=== PATIENT | male | born 1935 | race Caucasian/White ===

== ENCOUNTER 2016-12-10 19:28 | Emergency (ER) | payer MEDICARE ==
[2016-12-10 19:43] VITALS: BP 164/91
[2016-12-10] MEDS ORDERED: Polymyx/Trimethoprim OPTH* 10 ML BTL RIGHT EYE ONE (20:57)
--- NOTE | 2016-12-10 20:59 | ED ---
Throat Pain/Nasal Congestion - HPI Summary HPI Summary: 81M presents with right eye injury s/p getting hit in the eye with a branch while trimming the hedges. He denies any pain or change in vision. He states that there was a lot of growth to the hedge so one of them swatted him in the eye. He does not wear contacts but he wears glasses. He states his eye has been watering. He states he looked in the mirror and noticed that he had redness of his eye. He states he used a cotton swap and tried to rub it and nothing was removed. He is not on any blood thinners but he does take a daily aspirin. - History of Current Complaint Chief Complaint: EDEyeProblem Time Seen by Provider: 12/10/16 19:46 - Allergies/Home Medications Allergies/Adverse Reactions: Allergies Allergy/AdvReac Type Severity Reaction Status Date / Time CRAB Allergy Swelling Uncoded 12/10/16 19:40 Of Face,Lips,& Throat PMH/Surg Hx/FS Hx/Imm Hx Endocrine/Hematology History: Denies: Hx Anticoagulant Therapy, Hx Diabetes Cardiovascular History: Reports: Hx Hypertension Infectious Disease History: Denies: Traveled Outside the [place] in Last 30 Days - Family History Known Family History: Positive: Cardiac Disease - Social History Alcohol Use: Daily Substance Use Type: Reports: None Smoking Status (MU): Former Smoker Review of Systems Negative: Fever Positive: Drainage - watery, Other - blood in eye. Negative: Blurred Vision, Diplopia Negative: Chest Pain Negative: Shortness Of Breath All Other Systems Reviewed And Are Negative: Yes Physical Exam Triage Information Reviewed: Yes Vital Signs On Initial Exam: Initial Vitals Temp Pulse Resp BP Pulse Ox 99.1 F 64 16 164/91 96 12/10/16 19:40 12/10/16 19:40 12/10/16 19:40 12/10/16 19:40 12/10/16 19:40 Vital Signs Reviewed: Yes Appearance: Positive: Well-Appearing Skin: Positive: Warm, Dry Head/Face: Positive: Normal Head/Face Inspection Eyes: Positive: EOMI, REX, Other: - subconjunctivital hemmorrhage ENT: Positive: Normal ENT inspection, Pharynx normal, TMs normal Respiratory/Lung Sounds: Positive: Clear to Auscultation, Breath Sounds Present Cardiovascular: Positive: Normal, RRR Procedures - Eye Procedure Alcaine Drops Administered: Yes - fluorscein shows 1/2mm at 12 position Diagnostics - Vital Signs Vital Signs Temp Pulse Resp BP Pulse Ox 12/10/16 20:06 99 F 64 16 164/91 96 12/10/16 19:40 99.1 F 64 16 164/91 96 - Laboratory Lab Statement: Any lab studies that have been ordered have been reviewed, and results considered in the medical decision making process. EENT Course/Dx - Course Course Of Treatment: 81M presents with right eye injury s/p getting hit in the eye with a branch while trimming the hedges. He denies any pain or change in vision. He states that there was a lot of growth to the hedge so one of them swatted him in the eye. He does not wear contacts but he wears glasses. He states his eye has been watering. He states he looked in the mirror and noticed that he had redness of his eye. on exam he has a subconjunctiva hemorrhage. fluroscein exam shows 1/4mm corneal abrasion at 12 position. will treat with polytrim. patient understands and agrees with plan - Differential Diagnoses Differential Diagnoses: Conjunctivitis, Corneal Abrasion, Other - subconjunctival hemorrhage - Diagnoses Provider Diagnoses: Corneal abrasion, Subconjunctival hemorrhage of right eye Discharge - Discharge Plan Condition: Good Disposition: HOME Patient Education Materials: Corneal Abrasion (ED), Subconjunctival Hemorrhage (ED) Referrals: Grzegorz Washburn MD [Primary Care Provider] - Additional Instructions: Place 1 drop in eye 4 times a day for 5 days Use artificial tears or saline to rinse eye for symptomatic relief The blood in the eye may take up to two weeks to resolve Take Tylenol for pain Follow up with ophthalmology if no improvement in 5 days Return to ED if develop any new or worsening symptoms
== END 2016-12-10 21:07 | disposition home or self-care (01) ==
LOC: ED 19:28
DX: S05.01XA Injury of conjunctiva and corneal abrasion without foreign body, right eye, initial encounter (principal); H11.31 Conjunctival hemorrhage, right eye; W22.8XXA Striking against or struck by other objects, initial encounter; Y93.H2 Activity, gardening and landscaping; Y92.9 Unspecified place or not applicable; I10 Essential (primary) hypertension; Z87.891 Personal history of nicotine dependence
CPT/HCPCS: 99281

== ENCOUNTER 2017-06-20 10:57 | Emergency (ER) | payer MEDICARE ==
--- OUTSIDE RECORDS SUMMARY | 2017-06-20 11:06 | XMS REPORT ---
:1935 External Reference #:[id number] Author Organization [facility] Address [address] [address] Phone [phone] Care Team Providers Name Role Phone Grzegorz Washburn MD Primary Care Physician Unavailable Payers Type Date Identification Numbers Payment Provider Subscriber Health Maintenance Effective: Policy Number: Medicare Blue Azucena Chavez [facility] [place] 07/24/2013 [id number] [facility] PayID: [id number] [address] [address] [place] [address] Medigap Part B Policy Number: [id number] [facility] Azucena Chavez PayID: [id number] [address] [place] [address] Medigap Part B Effective: 12/24/2001 Policy Number: [id number] Medicare Azucena Chavez Expires: 07/23/2013 PayID: [id number] [address] [place] [address] Medigap Part B Expires: Policy Number: [facility]/[employer] Azucena Chavez 07/23/2013 [id number] Healthcare PayID: [id number] [address] [place] [address] Medigap Part B Effective: Policy Number: [facility] Azucena [facility] 04/25/2016 [id number] Healthcare Expires: 05/25/2016 PayID: [id number] [address] [place] [address] Problems Date Description Provider Status Onset: 09/30/2007 Mixed hyperlipidemia Hero Mcneill M.D.FACP Onset: 04/24/2011 History of malignant neoplasm of Hero Mcneill prostate Juliette,FACP Onset: 04/24/2011 Benign essential hypertension Hero Mcneill M.D.FACP Onset: 09/01/2015 Impaired fasting glycaemia Hero Mcneill M.D.FACP Onset: 09/01/2015 Sinus bradycardia Hero Mcneill M.D., FACP Onset: 12/04/2015 Aortic stenosis, non-rheumatic Hero Mcneill M.D., FACP Note: mild, echo 2015 Onset: 09/16/2013 Systolic murmur Grzegorz Washburn M.D.,NEIL Inactive Inactive: 12/04/2015 Note: Aortic sclerosis on echo 2009 Family History Date Family Member(s) Problem(s) Comments Father due to Leukemia () - 1963 Mother Osteoporosis Mother due to Cancer, Breast () - at age 101 Mother Aortic Stenosis Mother Chronic Obstructive Pulmonary Disease (COPD) First Son acne First Son Mental Illness NOS abusive of father Siblings 1 No known CAD First Sister Alive And Well Social History Type Date Description Comments Marital Status Lives With Son Occupation Retired semi-retired, [employer] Cigarette Use Quit 22 Years Ago ETOH Use 05/21/2017 Consumes 2 glasses of wine per day Recreational Drug Use Denies Drug Use Smoking 1984 Patient is a former smoker Daily Caffeine Consumes on average 1 cup of hot tea per day Daily Caffeine Consumes on average 1 cup of regular coffee per day Exercise Type/Frequency Bikes 3 times a week Exercise Type/Frequency Swims 4 times a week General Hx Text 2 sons Allergies, Adverse Reactions, Alerts Date Description Reaction Status Severity Comments 04/24/2011 NKDA active 05/07/2012 Crab swells up active Medications Medication Date Status Form Strength Qnty SIG Indications Ordering Provider Propranolol 09/16/ Active Tablets 10mg 30tab 1 by mouth 784.0 Grzegorz HCL 2013 s every day as Alesha Washburn needed Juliette,NEIL Fluticasone 05/13/ Active Suspension 50mcg/Act 16uni Use One Grzegorz Propionate 2012 ts [place](S) In Alesha Washburn, Each Nostril Juliette,NEIL In The Morning Aspirin 02/20/ Active Tablets DR 81mg 50tab 1 po qd Grzegorz 2009 s Alesha Washburn M.D.,NEIL Simvastatin 03/29/ Active Tablets 10mg 90tab take one Grzegorz 2009 s tablet by Alesha Washburn, mouth at [facility] Vitamin C SR / Active Capsules ER 500mg 1 daily Unknown 0000 Calcium 500 +D / Active Tablets 500-400mg 180ta 1 po qd Unknown 0000 -Unit bs Vitamin B / Active Capsules 1 po qd Unknown Complex 0000 Fish Oil / Active Capsules 1000mg 1 po qd Unknown 0000 Potassium / Active Tablets 595mg 300ta 1 tablet Unknown Gluconate 0000 bs daily Vitamin B-12 / Active Tablets Sub 2500mcg 1 by mouth Unknown 0000 every day Tamiflu 06/17/ Hx Capsules 75mg 10cap 1 by mouth Grzegorz 2016 - s twice a day Alesha Washburn, 06/22/ x 5 days M.D.,[facility] 2017 Azithromycin 03/08/ Hx Tablets 250mg 6tabs 2 every day Grzegorz 2016 - for 1 day, Alesha Washburn, 03/13/ then 1 every M.D[facility] 2015 day Cheratussin ac 03/05/ Hx Syrup 100-10mg/ 236ml 10 J20.9 Grzegorz 2016 - 5ML milliliters Alesha Washburn, 05/21/ by mouth [facility] 2017 four times a day as needed Zithromax 06/23/ Hx Tablets 250mg 1tabs 2 tabs today 465.8 Taz Sheets 2014 - and one tab REMEDIOS Powell 07/17/ each day 2015 therafter. by mouth Azithromycin 05/06/ Hx Tablets 250mg 6tabs 2 tabs by 465.9 Keyla 2013 - mouth every Lucinda, 06/23/ day x1 day, N.P. 2014 1 tab by mouth every day x 4 days Cephalexin 02/21/ Hx Capsules 500mg 20cap 1 tab by 680.2 Taz 2013 - s mouth four Powell, [employer] C[employer] MANAGER 03/04/ times a day 2013 Nasonex 01/08/ Hx Suspension 50mcg/Act 1Mon 1 spray michael 473.8 Grzegorz 2012 - each side qd Alesha Washburn, 05/13/ M.D.,FACP 2012 Zyrtec Allergy 01/08/ Hx Capsules 10mg 30cap po qd as 473.8 Grzegorz 2012 - s needed Alesha Washburn, 09/16/ M.D.,FACP 2014 Augmentin 10/30/ Hx Tablets 875-125mg 20tab 1 po 2x per 461.8 Cris 2012 - jamison Reyez, 01/08/ M.D. 2012 Ventolin HFA 08/27/ Hx Aerosol 108(90Bas 1unit 2 puffs po 466.0 Keyla 2012 - e) mcg/ac s qid prn Lucinda, 02/20/ N.P. 2013 Augmentin 08/27/ Hx Tablets 875-125mg 20tab bid x 10 466.0 Keyla 2012 - quinton Jane, 10/30/ N.P. 2013 Tessalon 08/27/ Hx Capsules 100mg 100mg 100 mg po 466.0 Keyla Perles 2013 - tid prn Lucinda, 09/16/ N.P. 2014 Propranolol 08/07/ Hx Tablets 10mg 30tab 1 po qd prn 784.0 Grzegorz CHURCH 2012 Alesha Washburn, M.D.,FACP 2012 Lorazepam 09/09/ Hx Tablets 2mg 2tabs 1 tablet po Grzegorz 2011 - 1 hour Alesha Washburn, before M.D.,FACP 2011 procedure Lorazepam 09/04/ Hx Tablets 2mg 1tabs 1 tablet po Grzegorz 2011 - 1 hour DEtienne Washburn, M.D.,FACP 2011 procedure Medrol Dosepak 12/18/ Hx Tablets 4mg 1tabs as directed 719.41 Reggie 2009 Harriet Pachika , M.Alesha 2009 Luzma 12/18/ Hx Tablets 180mg 30tab once daily 719.41 Reggie 2009 Harriet billingsley Pachikara , M.DtEienne 2010 Ibuprofen 03/29/ Hx Tablets 600mg 60tab tid prn PO 719.46 Grzegorz 2008 Harriet Washburn, M.D.,FACP 2009 Levitra 10/26/ Hx Tablets 10mg 12tab qd prn Grzegorz 2008 Harriet Washburn, M.D.,FACP 2010 Zocor / Hx Tablets 10mg 90tab 1 po hs Grzegorz Harriet Washburn, M.D.,FACP 2008 Saw [place] / Hx 1 qd Unknown 0000 - 2008 Glucosamine-Ch / Hx Capsules [id number] 1 PO 2 X day Unknown ondroitin - 2016 Vitamin E / Hx Capsules 400Unit 1 by mouth Unknown Complex 0000 - once daily 2011 Zinc / Hx Capsules 660mg 1 daily Unknown - 2012 Natural / Hx 1 gtt OU q Unknown Opthalmic 0000 - hs 2016 Immunizations CPT Code Status Date Vaccine Reaction Lot # [id number] Given 03/05/2017 Influenza Virus Vaccine, Quadrivalent, Split, Preservative Free [id number] Given 06/04/2016 Influenza Virus Vaccine, Quadrivalent, Split Virus, Im Use 40493 Given 09/01/2015 Pneumococcal Conjugate [id number] Vaccine 13 Valent For Intramuscular Use 40527 Given 04/11/2015 Fluzone High Dose 49855 Given 02/21/2014 Influenza Virus Vaccine, [id number] Quadrivalent, Split, Preservative Free [id number] Given 02/26/2012 Fluzone Vaccine [id number] Given 08/23/2011 Zoster (Zostavax) [id number] 18644 Given 03/04/2011 Influenza Virus 3Yrs & Over 41497 Given 03/07/2010 Influenza Virus 3Yrs & [id number] Over 75315 Given 03/02/2010 Influenza Virus 3Yrs & Over 36575 Given 09/20/2003 Tdap - not really TDAP, Td Tetanus/Diptheria/Acellular from old chart Pertussis Vital Signs Date Vital Result Comment 05/21/2017 Height 72 inches 6'0" Weight 192.00 lb Heart Rate 61 /min BP Systolic Sitting 150 mmHg BP Diastolic Sitting 84 mmHg Body Temperature 97.4 F O2 % BldC Oximetry 97 % BMI (Body Mass Index) 26.0 kg/m2 09/02/2016 Height 72 inches 6'0" Weight 191.00 lb with shoes Heart Rate 60 /min BP Systolic Sitting 148 mmHg LA reg cuff BP Diastolic Sitting 86 mmHg LA reg cuff BMI (Body Mass Index) 25.9 kg/m2 Ejection Fraction 55% - 60% echo 11/15/15 06/17/2016 Weight 192.12 lb Heart Rate 71 /min BP Systolic Sitting 186 mmHg BP Diastolic Sitting 80 mmHg Body Temperature 100.9 F O2 % BldC Oximetry 97 % 03/05/2016 Height 72 inches 6'0" Weight 186.00 lb Heart Rate 57 /min BP Systolic 141 mmHg BP Diastolic 82 mmHg Body Temperature 98.0 F O2 % BldC Oximetry 96 % BMI (Body Mass Index) 25.2 kg/m2 01/10/2016 Height 72 inches 6'0" Weight 185.00 lb Heart Rate 80 /min BP Systolic Sitting 154 mmHg LA, reg BP Diastolic Sitting 84 mmHg LA, reg BMI (Body Mass Index) 25.1 kg/m2 Ejection Fraction 55%-60% echo 11/15/15 12/04/2015 Weight 187.00 lb Heart Rate 76 /min BP Systolic Sitting 146 mmHg BP Diastolic Sitting 72 mmHg O2 % BldC Oximetry 95 % 10/02/2015 Height 70.5 inches 5'10.50" Weight 186.75 lb with shoes Heart Rate 60 /min BP Systolic 156 mmHg LA lrg cuff BP Diastolic 82 mmHg LA lrg cuff BMI (Body Mass Index) 26.4 kg/m2 Ejection Fraction 55% - 60% echo 03/16/10 09/01/2015 Height 70.5 inches 5'10.50" Weight 185.00 lb Heart Rate 62 /min BP Systolic Sitting 112 mmHg BP Diastolic Sitting 72 mmHg Body Temperature 98.1 F O2 % BldC Oximetry 98 % BMI (Body Mass Index) 26.2 kg/m2 06/23/2014 Weight 191.00 lb Heart Rate 78 /min BP Systolic Sitting 120 mmHg BP Diastolic Sitting 70 mmHg Body Temperature 97.9 F O2 % BldC Oximetry 96 % 05/06/2014 Weight 196.00 lb Heart Rate 76 /min BP Systolic Sitting 155 mmHg BP Diastolic Sitting 83 mmHg Body Temperature 97.4 F O2 % BldC Oximetry 96 % 02/21/2014 Weight 193.00 lb Heart Rate 58 /min BP Systolic Sitting 164 mmHg BP Diastolic Sitting 91 mmHg Body Temperature 97.4 F O2 % BldC Oximetry 97 % 09/16/2013 Height 70.5 inches 5'10.50" Weight 193.00 lb Heart Rate 58 /min BP Systolic Sitting 140 mmHg BP Diastolic Sitting 90 mmHg Body Temperature 97.7 F BMI (Body Mass Index) 27.3 kg/m2 01/08/2013 Height 70.5 inches 5'10.50" Weight 194.75 lb Heart Rate 64 /min BP Systolic Sitting 140 mmHg BP Diastolic Sitting 80 mmHg Body Temperature 97.1 F BMI (Body Mass Index) 27.5 kg/m2 10/30/2012 Weight 192.00 lb Heart Rate 59 /min BP Systolic Sitting 148 mmHg BP Diastolic Sitting 87 mmHg Body Temperature 99.8 F O2 % BldC Oximetry 98 % 08/27/2012 Height 70.5 inches 5'10.50" Weight 187.00 lb Heart Rate 80 /min BP Systolic Sitting 146 mmHg BP Diastolic Sitting 90 mmHg Body Temperature 97.6 F O2 % BldC Oximetry 96 % BMI (Body Mass Index) 26.4 kg/m2 08/07/2012 Height 70.5 inches 5'10.50" Weight 184.75 lb Heart Rate 92 /min BP Systolic Sitting 124 mmHg BP Diastolic Sitting 68 mmHg BMI (Body Mass Index) 26.1 kg/m2 05/07/2012 Height 70.5 inches 5'10.50" Weight 186.00 lb Heart Rate 72 /min BP Systolic Sitting 120 mmHg BP Diastolic Sitting 80 mmHg BMI (Body Mass Index) 26.3 kg/m2 12/31/2011 Height 70.5 inches 5'10.50" Weight 66.00 lb BP Systolic 124 mmHg BP Diastolic 76 mmHg Body Temperature 97.5 F lt ear BMI (Body Mass Index) 9.3 kg/m2 10/03/2011 Height 70.5 inches 5'10.50" Weight 188.00 lb Heart Rate 60 /min BP Systolic Sitting 130 mmHg BP Diastolic Sitting 70 mmHg BMI (Body Mass Index) 26.6 kg/m2 08/23/2011 Height 70.5 inches 5'10.50" Weight 192.00 lb Heart Rate 68 /min BP Systolic Sitting 136 mmHg BP Diastolic Sitting 84 mmHg BMI (Body Mass Index) 27.2 kg/m2 07/18/2011 Height 70.5 inches 5'10.50" Weight 189.31 lb Heart Rate 56 /min BP Systolic Sitting 146 mmHg BP Diastolic Sitting 84 mmHg BMI (Body Mass Index) 26.8 kg/m2 04/24/2011 Height 70.5 inches 5'10.50" Weight 187.75 lb Heart Rate 60 /min BP Systolic Sitting 162 mmHg BP Diastolic Sitting 86 mmHg BMI (Body Mass Index) 26.6 kg/m2 02/18/2011 Weight 191.00 lb Heart Rate 76 /min BP Systolic Sitting 146 mmHg BP Diastolic Sitting 78 mmHg Body Temperature 96.9 F 02/08/2011 Height 70 inches 5'10" Weight 181.00 lb Heart Rate 64 /min BP Systolic Sitting 138 mmHg L BP Diastolic Sitting 74 mmHg L BMI (Body Mass Index) 26.0 kg/m2 02/20/2010 Weight 186.00 lb Heart Rate 64 /min BP Systolic Sitting 134 mmHg BP Diastolic Sitting 80 mmHg 12/18/2009 Weight 189.00 lb Heart Rate 68 /min BP Systolic Sitting 144 mmHg BP Diastolic Sitting 92 mmHg 03/29/2009 Weight 192.00 lb Heart Rate 76 /min BP Systolic Sitting 138 mmHg BP Diastolic Sitting 78 mmHg Body Temperature 96.6 F 10/26/2008 Weight 186.00 lb Heart Rate 62 /min BP Systolic Sitting 152 mmHg BP Diastolic Sitting 90 mmHg O2 % BldC Oximetry 100 % 09/30/2007 Height 71.5 inches 5'11.50" Weight 190.00 lb Heart Rate 60 /min BP Systolic Sitting 130 mmHg BP Diastolic Sitting 80 mmHg BMI (Body Mass Index) 26.1 kg/m2 Results Test Date Test Result H/L Range Note Lipid Profile (Trig/Chol/HDL) 12/17/2016 Triglycerides 68 mg/dL 1 Cholesterol 193 mg/dL 2 HDL Cholesterol 68.9 mg/dL 3 LDL Cholesterol 111 mg/dL 4 Laboratory test finding 12/17/2016 PSA Diagnostic 0.032 ng/mL 0-4.000 5 Basic Metabolic Panel 12/17/2016 Sodium 140 mmol/L 133-145 Potassium 4.5 mmol/L 3.5-5.0 Chloride 105 mmol/L 101-111 Co2 Carbon Dioxide 28 mmol/L 22-32 Anion Gap 7 mmol/L 2-11 Glucose 106 mg/dL High 70-100 Blood Urea Nitrogen 15 mg/dL 6-24 Creatinine 0.89 mg/dL 0.67-1.17 BUN/Creatinine Ratio 16.9 8-20 Calcium 9.2 mg/dL 8.6-10.3 Egfr Non- 81.8 >60 Egfr 105.2 >60 6 Rapid Influenza A & B 06/17/2016 Influenza A Molecular POSITIVE Negative 7 Molecular Influenza B Molecular NEGATIVE Negative Laboratory test finding 06/17/2016 Influenza A & B SEE RESULT BELOW 8 Request Comp Metabolic Panel 08/22/2015 Sodium 139 mmol/L 133-145 Potassium 4.2 mmol/L 3.5-5.0 Chloride 104 mmol/L 101-111 Co2 Carbon Dioxide 31 mmol/L 22-32 Anion Gap 4 mmol/L 2-11 Glucose 102 mg/dL High 70-100 Blood Urea Nitrogen 16 mg/dL 6-24 Creatinine 0.98 mg/dL 0.67-1.17 BUN/Creatinine Ratio 16.3 8-20 Calcium 9.1 mg/dL 8.6-10.3 Total Protein 6.6 g/dL 6.4-8.9 Albumin 4.5 g/dL 3.2-5.2 Globulin 2.1 g/dL 2-4 Albumin/Globulin Ratio 2.1 1-3 Total Bilirubin 0.80 mg/dL 0.2-1.0 Alkaline Phosphatase 47 U/L 34-104 Alt 19 U/L 7-52 Ast 19 U/L 13-39 Egfr Non- 73.4 >60 Egfr 94.4 >60 9 Lipid Profile (Trig/Chol/HDL) 08/22/2015 Triglycerides 58 mg/dL 10 Cholesterol 173 mg/dL 11 HDL Cholesterol 71.9 mg/dL 12 LDL Cholesterol 90 mg/dL 13 Laboratory test finding 09/08/2013 PSA Diagnostic < 0.008 ng/mL 0- 4.000 14, 15 Comp Metabolic Panel 09/08/2013 Sodium 139 mmol/L 133-145 14 Potassium 4.3 mmol/L 3.7-5.6 14 Chloride 105 mmol/L 101-111 14 Co2 Carbon Dioxide 29 mmol/L 22-32 14 Anion Gap 5 mmol/L 2-11 14 Glucose 96 mg/dL 70-100 14 Blood Urea Nitrogen 13 mg/dL 6-24 14 Creatinine 0.93 mg/dL 0.67-1.17 14 BUN/Creatinine Ratio 14.0 8-20 14 Calcium 9.0 mg/dL 8.6-10.3 14 Total Protein 6.7 g/dL 6.4-8.9 14 Albumin 4.6 g/dL 3.2-5.2 14 Globulin 2.1 g/dL 2-4 14 Albumin/Globulin Ratio 2.2 1-3 14 Total Bilirubin 1.00 mg/dL 0.2-1.0 14 Alkaline Phosphatase 47 U/L 34-104 14 Alt 19 U/L 7-52 14 Ast 20 U/L 13-39 14 Egfr Non- 78.4 >60 14 Egfr 100.8 >60 14, 16 Lipid Profile (Trig/Chol/HDL) 09/08/2013 Triglycerides 86 mg/dL 14, 17 Cholesterol 196 mg/dL 14, 18 HDL Cholesterol 68.8 mg/dL 14, 19 LDL Cholesterol 110 mg/dL 14, 20 Lipid Panel 05/01/2012 Triglycerides 48 mg/dL 40-200 Cholesterol 211 mg/dL High Less than 200 HDL Cholesterol 83 mg/dL High 40-60 21 Cholesterol/HDL Ratio 2.5 Average 1-4.44 LDL Cholesterol 118.4 mg/dL High Less Than 100 22 Laboratory test finding 05/01/2012 PSA Diagnostic 0.0 ng/mL 0-4.0 23 CMP Panel 05/01/2012 Sodium 140 mmol/L 133-145 Potassium 4.4 mmol/L 3.5-5.0 Chloride 104 mmol/L 101-111 Co2 Carbon Dioxide 27.0 mmol/L 22-32 Anion Gap 9.0 mmol/L 2-11 Glucose 104 mg/dL High 70-100 Blood Urea Nitrogen 14 mg/dL 6-24 Creatinine 1.00 mg/dL 0.50-1.40 BUN/Creatinine Ratio 14.0 8-20 Calcium 9.1 mg/dL 8.1-9.9 Total Protein 6.4 g/dL 6.2-8.1 Albumin 4.3 g/dL 3.2-5.2 Globulin 2.1 g/dL 2-4 Albumin/Globulin Ratio 2.0 1-3 Total Bilirubin 1.0 mg/dL 0.4-1.5 Alkaline Phosphatase 56 U/L 30-110 Alt 25 U/L 14-54 Ast 25 U/L 12-42 Egfr Non- 72.3 >60 Egfr 92.9 >60 24 Lipid Panel - JF 05/01/2012 Creatine Kinase 137 U/L 0-200 Laboratory test finding 08/30/2011 Hemoglobin A1c 5.7 % Less Than 6.0 25 Liver Function Panel 08/23/2011 Total Protein 6.8 GM/DL 6.2-8.1 Albumin 4.4 GM/DL 3.2-5.2 Globulin 2.4 GM/DL 2-4 Albumin/Globulin Ratio 1.8 1-3 Bilirubin Total 1.1 mg/dL 0.4-1.5 26 Bilirubin Direct 0.2 mg/dL 0.1-0.5 Indirect Bilirubin 0.9 mg/dL 0.3-1.0 27 Alkaline Phosphatase 54 U/L 39-117 Alt (SGPT) 22 U/L 17-63 Ast (Sgot) 23 U/L 12-42 Basic Metabolic Panel 08/23/2011 Sodium 136 mmol/L 135-145 Potassium 4.6 mmol/L 3.5-5.0 Chloride 105 mmol/L 101-111 Co2 (Carbon Dioxide) 26.0 mmol/L 22-32 Anion Gap 5.0 mmol/L 2-11 28 Glucose 124 mg/dL High 70-100 BUN 17 mg/dL 6-24 Creatinine 0.9 mg/dL 0.50-1.40 One Over Creatinine 1.11 BUN/Creatinine Ratio 18.9 8-20 Calcium 9.0 mg/dL 8.1-9.9 eGFR Non- 81.8 > 60 eGFR 105.2 > 60 29 Laboratory test finding 05/06/2011 PSA,Diagnostic 0.00 NG/ML 0-4 30 CBC Auto Diff 05/06/2011 White Blood Count 3.4 CUMM Low 4.8-10.8 Red Cell Count 4.46 CUMM Low 4.6-6.2 Hemoglobin 14.5 g/dL 14.0-18.0 Hematocrit 42 % 42-52 Mean Corpuscular Volume 95 um3 High 80-94 Mean Corpuscular Hemoglob 33 pg High 27-31 Mean Corpuscular HGB Cone 34 g/dL 32-36 Redcell Distribution WDTH 14 % 10.5-15 Platelet Count 157 CUMM 150-450 Mean Platelet Volume 9.2 um3 7.4-10.4 Gran % 54.4 % 38-83 Lymph % 35.1 % 25-47 Mononuclear % 7.8 % 1-9 Eosinophil % 2.4 % 0-6 Basophil % 0.3 % 0-2 Abs Lymphs 1.2 1.0-4.8 Abs Mononuclear 0.3 0-0.8 Absolute Neutrophil Count 1.8 1.5-7.7 Abs Eosinophils 0.1 0-0.6 Abs Basophils 0 0-0.2 Laboratory test finding 02/11/2011 CPK (Creatine Kinase) 132 U/L 0-200 Lipid Profile (Trig/Chol/HDL) 02/11/2011 Triglyceride 43 mg/dL 40-200 Cholesterol 206 mg/dL High Less Than 200 31 High Density Lipoprotein 76 mg/dL High 40-60 32 Cholesterol/HDL Ratio 2.71 AVERAGE 1-4.97 Low Density Lipoprotein 121 mg/dL High Less Than 100 33 Vitamin B12 And Folate Serum 02/11/2011 Vitamin B12 338 pg/mL 180-914 Folic Acid 12.8 NG/ML 2-16 Laboratory test finding 02/11/2011 Lyme Disease Serology Negative Negative 34 TSH 2.13 MIU/ML 0.34-5.60 Thyroxine Free 0.84 ng/dL 0.61-1.24 Lyme Disease AB Conf. 02/11/2011 Lyme Igg Western Blot Negative Negative West.Blot Lyme Igg Bands Detected p41 kDa () Lyme Igm Western Blot Negative Negative Lyme Igm Bands Detected No bands detecte <SEE NOTE> kDa () 35 Lyme Disease Interpretation . () 36 Comp Metabolic Panel 02/11/2011 Sodium 143 mmol/L 135-145 Potassium 4.9 mmol/L 3.5-5.0 Chloride 107 mmol/L 101-111 Co2 (Carbon Dioxide) 30.0 mmol/L 22-32 Anion Gap 6.0 mmol/L 2-11 37 Glucose 102 mg/dL High 70-100 BUN 11 mg/dL 6-24 Creatinine 1.0 mg/dL 0.50-1.40 One Over Creatinine 1.00 BUN/Creatinine Ratio 11.0 8-20 Calcium 9.0 mg/dL 8.1-9.9 Total Protein 6.1 GM/DL Low 6.2-8.1 Albumin 4.3 GM/DL 3.2-5.2 Globulin 1.8 GM/DL Low 2-4 Albumin/Globulin Ratio 2.4 1-3 Bilirubin Total 0.9 mg/dL 0.4-1.5 38 Alkaline Phosphatase 52 U/L 39-117 Alt (SGPT) 22 U/L 17-63 Ast (Sgot) 24 U/L 12-42 eGFR Non- 72.6 > 60 eGFR 93.4 > 60 39 CBC With Manual Diff 02/11/2011 White Blood Count 3.3 CUMM Low 4.8-10.8 Red Cell Count 4.40 CUMM Low 4.6-6.2 Hemoglobin 14.7 g/dL 14.0-18.0 Hematocrit 42 % 42-52 Mean Corpuscular Volume 95 um3 High 80-94 Mean Corpuscular Hemoglob 33 pg High 27-31 Mean Corpuscular HGB Cone 35 g/dL 32-36 Redcell Distribution WDTH 13 % 10.5-15 Platelet Count 132 CUMM Low 150-450 Mean Platelet Volume 9.5 um3 7.4-10.4 Polysegmented Neutrophil 49 % 38-83 Band Neutrophil 1 % 0-8 Lymphocyte 45 % 25-47 Monocyte 4 % 0-13 Eosinophil 1 % 0-6 Absolute Neutrophil Count 1.6 RBC Morphology NORMAL Laboratory test finding 02/22/2010 PSA,Diagnostic 0.00 NG/ML 0-4 40 Lipid Panel - JF 02/22/2010 CPK (Creatine Kinase) 108 U/L 0-200 Comp Metabolic Panel 02/22/2010 Sodium 139 mmol/L 135-145 Potassium 4.1 mmol/L 3.5-5.0 Chloride 107 mmol/L 101-111 Co2 (Carbon Dioxide) 27.0 mmol/L 22-32 Anion Gap 5.0 mmol/L 2-11 41 Glucose 102 mg/dL High 70-100 42 BUN 15 mg/dL 6-24 Creatinine 0.87 mg/dL 0.50-1.40 One Over Creatinine 1.10 BUN/Creatinine Ratio 17.2 8-20 Calcium 8.7 mg/dL 8.1-9.9 Total Protein 6.7 GM/DL 6.2-8.1 Albumin 4.0 GM/DL 3.2-5.2 Globulin 2.7 GM/DL 2-4 Albumin/Globulin Ratio 1.5 1-3 Bilirubin Total 1.1 mg/dL 0.4-1.5 43 Alkaline Phosphatase 50 U/L 39-117 Alt (SGPT) 20 U/L 17-63 Ast (Sgot) 22 U/L 12-42 eGFR Non- 90.9 > 60 eGFR 110.0 > 60 44 Lipid Profile (Trig/Chol/HDL) 02/22/2010 Triglyceride 49 mg/dL 40-200 Cholesterol 195 mg/dL Less Than 200 45 High Density Lipoprotein 75 mg/dL High 40-60 46 Low Density Lipoprotein 110 mg/dL High Less Than 100 47 Cholesterol/HDL Ratio 2.60 AVERAGE 1-4.97 Lipid Profile (Trig/Chol/HDL) 11/11/2008 Triglyceride 58 mg/dL 40-200 Cholesterol 210 mg/dL High Less Than 200 48 High Density Lipoprotein 89 mg/dL High 40-60 49 Cholesterol/HDL Ratio 2.36 AVERAGE 1-4.97 Low Density Lipoprotein 109 mg/dL High Less Than 100 50 Comp Metabolic Panel 11/11/2008 Sodium 138 mmol/L 135-145 Potassium 4.2 mmol/L 3.5-5.0 Chloride 105 mmol/L 101-111 Co2 (Carbon Dioxide) 27.0 mmol/L 22-32 Anion Gap 6.0 mmol/L 2-11 51 Glucose 94 mg/dL 70-100 52 BUN 15 mg/dL 6-24 Creatinine 1.00 mg/dL 0.50-1.40 One Over Creatinine 1.00 BUN/Creatinine Ratio 15.0 8-20 Calcium 9.2 mg/dL 8.1-9.9 53 Total Protein 7.0 GM/DL 6.2-8.1 Albumin 4.4 GM/DL 3.2-5.2 Globulin 2.6 GM/DL 2-4 Albumin/Globulin Ratio 1.7 1-3 Bilirubin Total 1.0 mg/dL 0.4-1.5 54 Alkaline Phosphatase 52 U/L 39-117 Alt (SGPT) 23 U/L 17-63 Ast (Sgot) 26 U/L 12-42 Lipid Panel - [facility] 11/11/2008 CPK (Creatine Kinase) 151 U/L 0-200 Laboratory test finding 10/13/2008 PSA,Diagnostic 0.00 NG/ML 0-4 55 Laboratory test finding 03/23/2008 PSA,Diagnostic 0.00 NG/ML 0-4 56 Type And Screen 12/29/2007 Patient Blood Type O POSITIVE Antibody Screen NEGATIVE Specimen Discard Date 01/11/08 57 CBC With Electronic Diff 12/29/2007 White Blood Count 4.2 CUMM Low 4.8- 10.8 Red Cell Count 4.37 CUMM Low 4.6-6.2 Hemoglobin 14.1 g/dL 14.0-18.0 Hematocrit 41 % Low 42-52 Mean Corpuscular Volume 93 um3 80-94 Mean Corpuscular Hemoglob 32 pg High 27-31 Mean Corpuscular HGB Cone 35 g/dL 32-36 Redcell Distribution WDTH 14 % 10.5-15 Platelet Count 160 CUMM 150-450 Mean Platelet Volume 8.2 um3 7.4-10.4 Gran % 63.2 % 38-83 Lymph % 27.0 % 20-45 Mononuclear % 7.1 % 1-9 Eosinophil % 2.5 % 0-6 Basophil % 0.2 % 0-2 Abs Lymphs 1.1 1.0-4.8 Abs Mononuclear 0.3 0-0.8 Absolute Neutrophil Count 2.6 1.5-7.7 Abs Eosinophils 0.1 0-0.6 Abs Basophils 0 0-0.2 Basic Metabolic Panel 12/29/2007 Sodium 140 mmol/L 135-145 Potassium 3.8 mmol/L 3.5-5.0 Chloride 108 mmol/L 101-111 Co2 (Carbon Dioxide) 27.0 mmol/L 22-32 Anion Gap 5.0 mmol/L 2-11 58 Glucose 133 mg/dL High 70-105 BUN 14 mg/dL 6-24 Creatinine 0.9 mg/dL 0.5-1.4 One Over Creatinine 1.11 BUN/Creatinine Ratio 15.6 8-20 Calcium 8.6 mg/dL 8.1-9.9 59 Surgical 11/26/2007 Surgical Pathology 60 Pathology <SEE NOTE> Laboratory test 10/30/2007 PSA,Diagnostic 4.09 NG/ML High 0-4 61 finding Lipid Profile 10/30/2007 Triglyceride 45 mg/dL 40-200 61 (Trig/Chol/HDL) Cholesterol 199 mg/dL Less Than 200 61, 62 High Density Lipoprotein 84 mg/dL High 40-60 61, 63 Cholesterol/HDL Ratio 2.37 AVERAGE 1-4.97 61 Low Density Lipoprotein 106 mg/dL High Less Than 100 61, 64 Comp Metabolic Panel 10/30/2007 Sodium 140 mmol/L 135-145 61 Potassium 3.5 mmol/L 3.5-5.0 61 Chloride 109 mmol/L 101-111 61 Co2 (Carbon Dioxide) 26.0 mmol/L 22-32 61 Anion Gap 5.0 mmol/L 2-11 61, 65 Glucose 105 mg/dL 70-105 61 BUN 13 mg/dL 6-24 61 Creatinine 1.1 mg/dL 0.5-1.4 61 One Over Creatinine 0.90 61 BUN/Creatinine Ratio 11.8 8-20 61 Calcium 8.4 mg/dL 8.1-9.9 61, 66 Total Protein 6.8 GM/DL 6.2-8.1 61 Albumin 4.4 GM/DL 3.2-5.2 61 Globulin 2.4 GM/DL 2-4 61 Albumin/Globulin Ratio 1.8 1-3 61 Bilirubin Total 1.3 mg/dL 0.4-1.5 61 Alkaline Phosphatase 50 U/L 39-117 61 Alt (SGPT) 26 U/L 17-63 61 Ast (Sgot) 29 U/L 12-42 61 Lipid Panel - [facility] 10/30/2007 CPK (Creatine Kinase) 226 U/L High 0-200 61 Surgical Pathology 10/30/2007 Surgical Pathology 67 <SEE NOTE> 1 Desirable <150 Borderline high 150-199 High 200-499 Very High >500 2 Desirable <200 Borderline high 200-239 High >239 3 Low <40 Desirable: 40-60 High: >60 4 Desirable: <100 mg/dL Near Optimal: 100-129 mg/dL Borderline High: 130-159 mg/dL High: 160-189 mg/dL Very High: >189 mg/dL 5 Serum levels of PSA measured using the Nabor Ruy DXI Hybritech immunoassay should not be interpreted as absolute evidence of the presence or absence of disease. The PSA value should be used in conjunction with other pertinent clinical diagnostic procedures. A PSA value in the range of 0.1 to 0.6 ng/ml is indeterminate if being used as an indicator of recurrent or residual disease. The values obtained with different assay methods or kits cannot be used interchangeably. 6 Because ethnic data is not always readily available, this report includes an eGFR for both -Americans and non- Americans. The National Kidney Disease Education Program (NKDEP) does not endorse the use of the MDRD equation for patients that are not between the ages of 18 and 70, are , have extremes of body size, muscle mass, or nutritional status, or are non- or non-. According to the National Kidney Foundation, irrespective of diagnosis, the stage of the disease is based on the level of kidney function: Stage Description GFR(mL/min/1.73 m(2)) 1 Kidney damage with normal or decreased GFR 90 2 Kidney damage with mild decrease in GFR 60-89 3 Moderate decrease in GFR 30-59 4 Severe decrease in GFR 15-29 5 Kidney failure <15 (or dialysis) 7 Buckle And Button Maker: [id number] RIVERNOJim FELDMAN 8 SEE RESULT BELOW Name: AZUCENA CHAVEZ : [address]: Lauren Washburn MD Acct: [id number] Unit: [id number] AGE: 81 Location: [facility] Re06/17/16 SEX: M Status: REG REF SPEC: [id number] POPPY: 06/17/16 [facility] DR: Grzegorz Washburn MD REQ: [id number] RECD: 06/17/16 STATUS: COMP _ SOURCE: NARA SPDESC: ORDERED: Demetrius A B Request COMMENTS: [id number] Procedure Result Reported Site Rapid Influenza A B Request Final 06/17/162010 ML Specimen received for Influenza A/B Molecular testing * ML - MAIN LAB ([facility]) . END OF REPORT * ML=Testing performed at Main Lab DEPARTMENT OF PATHOLOGY, [address] [place] [address] John Dexter M.D. Director [facility] # [id number] 9 Because ethnic data is not always readily available, this report includes an eGFR for both -Americans and non- Americans. The National Kidney Disease Education Program (NKDEP) does not endorse the use of the MDRD equation for patients that are not between the ages of 18 and 70, are , have extremes of body size, muscle mass, or nutritional status, or are non- or non-. According to the National Kidney Foundation, irrespective of diagnosis, the stage of the disease is based on the level of kidney function: Stage Description GFR(mL/min/1.73 m(2)) 1 Kidney damage with normal or decreased GFR 90 2 Kidney damage with mild decrease in GFR 60-89 3 Moderate decrease in GFR 30-59 4 Severe decrease in GFR 15-29 5 Kidney failure <15 (or dialysis) 10 Desirable <150 Borderline high 150-199 High 200-499 Very High >500 11 Desirable <200 Borderline high 200-239 High >239 12 Low <40 Desirable: 40-60 High: >60 13 Desirable: <100 mg/dL Near Optimal: 100-129 mg/dL Borderline High: 130-159 mg/dL High: 160-189 mg/dL Very High: >189 mg/dL 14 PT IS FASTING 15 Serum levels of PSA measured using the Diffon DXI Hybritech immunoassay should not be interpreted as absolute evidence of the presence or absence of disease. The PSA value should be used in conjunction with other pertinent clinical diagnostic procedures. A PSA value in the range of 0.1 to 0.6 ng/ml is indeterminate if being used as an indicator of recurrent or residual disease. The values obtained with different assay methods or kits cannot be used interchangeably. 16 Because ethnic data is not always readily available, this report includes an eGFR for both -Americans and non- Americans. The National Kidney Disease Education Program (NKDEP) does not endorse the use of the MDRD equation for patients that are not between the ages of 18 and 70, are , have extremes of body size, muscle mass, or nutritional status, or are non- or non-. According to the National Kidney Foundation, irrespective of diagnosis, the stage of the disease is based on the level of kidney function: Stage Description GFR(mL/min/1.73 m(2)) 1 Kidney damage with normal or decreased GFR 90 2 Kidney damage with mild decrease in GFR 60-89 3 Moderate decrease in GFR 30-59 4 Severe decrease in GFR 15-29 5 Kidney failure <15 (or dialysis) 17 Desirable <150 Borderline high 150-199 High 200-499 Very High >500 18 Desirable <200 Borderline high 200-239 High >239 19 Low <40 Desirable: 40-60 High: >60 20 Desirable <100 Near Optimal 100-129 Borderline high 130-159 High 160-189 Very High >189 21 HDL Interpretation: Undesirable: High Risk: Less than 40 MG/DL Desirable: Low Risk: Greater than 60 MG/DL 22 LDL Interpretation: Low Risk Optimal Level: LDL Less than 100 MG/DL Near or Above Optimal: LDL 100-129 MG/DL Borderline High Risk: LDL 130-159 MG/DL High Risk: LDL 160-189 MG/DL Very High Risk: LDL Greater than 189 MG/DL 23 Serum levels of PSA measured using the Nabor Laclede DXI Hybritech immunoassay should not be interpreted as absolute evidence of the presence or absence of disease. The PSA value should be used in conjunction with other pertinent clinical diagnostic procedures. A PSA value in the range of 0.1 to 0.6 ng/ml is indeterminate if being used as an indicator of recurrent or residual disease. The values obtained with different assay methods or kits cannot be used interchangeably. 24 Because ethnic data is not always readily available, this report includes an eGFR for both -Americans and non- Americans. The National Kidney Disease Education Program (NKDEP) does not endorse the use of the MDRD equation for patients that are not between the ages of 18 and 70, are , have extremes of body size, muscle mass, or nutritional status, or are non- or non-. According to the National Kidney Foundation, irrespective of diagnosis, the stage of the disease is based on the level of kidney function: Stage Description GFR(mL/min/1.73 m(2)) 1 Kidney damage with normal or decreased GFR 90 2 Kidney damage with mild decrease in GFR 60-89 3 Moderate decrease in GFR 30-59 4 Severe decrease in GFR 15-29 5 Kidney failure <15 (or dialysis) 25 THERAPEUTIC TARGET FOR THE TREATMENT OF DIABETES MELLITUS PATIENTS IS <7% HBA1C, AND IN SELECTIVE PATIENTS <6.0%. PLEASE REFER TO [place] [employer] DIABETIC CARE GUIDELINES FOR FURTHER INFORMATION. 26 A metabolite of Naproxen, O-desmethylnaproxen, has been shown to interfere with the [place] method for measuring total bilirubin. Samples from patients who have taken Naproxen have shown spurious elevation in total bilirubin levels. 27 Please note updated reference range, effective 12/14/09 28 Anion gap measurement may be of limited value in the presence of any alkalosis, especially in a combined acid base disorder. . 29 Because ethnic data is not always readily available, this report includes an eGFR for both -Americans and non- Americans. The National Kidney Disease Education Program (NKDEP) does not endorse the use of the MDRD equation for patients that are not between the ages of 18 and 70, are , have extremes of body size, muscle mass, or nutritional status, or are non- or non-. According to the National Kidney Foundation, irrespective of diagnosis, the stage of the disease is based on the level of kidney function: Stage Description GFR(mL/min/1.73 m(2)) 1 Kidney damage with normal or decreased GFR 90 2 Kidney damage with mild decrease in GFR 60-89 3 Moderate decrease in GFR 30-59 4 Severe decrease in GFR 15-29 5 Kidney failure <15 (or dialysis) 30 * SERUM LEVELS OF PSA MEASURED USING THE [employer] Systems ACCESS HYBRITECH IMMUNOASSAY SHOULD NOT BE INTERPRETED ABSOLUTE EVIDENCE OF THE PRESENCE OR ABSENCE OF DISEASE. THE PSA VALUE SHOULD BE USED IN CONJUNCTION WITH OTHER PERTINENT CLINICAL DIAGNOSTIC PROCEDURES. A PSA value in the range of 0.1 to 0.6 ng/ml is indeterminate if being used as an indicator of recurrent or residual disease. . 31 CHOLESTEROL INTERPRETATION: Desirable: Less than 200 MG/DL Borderline-High Risk: 200-239 MG/DL High-Risk: 240 MG/DL and over 32 HDL INTERPRETATION: Undesirable: High Risk: Less than 40 MG/DL Desirable: Low Risk: Greater than 60 MG/DL 33 LDL INTERPRETATION: Low Risk Optimal Level: LDL Less than 100 MG/DL Near or Above Optimal: LDL 100-129 MG/DL Borderline High Risk: LDL 130-159 MG/DL High Risk: LDL 160-189 MG/DL Very High Risk: LDL Greater than 189 MG/DL 34 Serologic response to B. burgdorferi infection is not detected, but cannot rule out early infection during which low or undetectable antibody levels to B. burgdorferi may be present. If clinically indicated, a new serum specimen should be submitted in 7-14 days. Test Performed by: [facility] Dpt of Lab Med and Pathology [address] [place] [id number] Fire Boss: uTshar Del Toro III, M.D. 35 No bands detected 36 Specific serologic response to B. burgdorferi infection is not detected, but cannot rule out early infection during which low or undetectable antibody levels to B. burgdorferi may be present. If clinically indicated, a new serum specimen should be submitted in 7-14 days. CDC criteria require >=5 bands for IgG or >=2 bands for IgM for the Western blot to be considered positive. Bands (e.g.,p41) may be detected in patients without Lyme disease, and patterns not meeting the CDC criteria should be interpreted with caution. Western blot should be ordered only on specimens that are positive or equivocal by a FDA-licensed Lyme disease antibody screening test (e.g., EIA). Test performed by immunoblot. Test Performed by: [facility] Dpt of Lab Med and Pathology [address] [place] [id number] Fire Boss: Tushar Del Toro III, M.D. 37 Anion gap measurement may be of limited value in the presence of any alkalosis, especially in a combined acid base disorder. . 38 A metabolite of Naproxen, O-desmethylnaproxen, has been shown to interfere with the [place] method for measuring total bilirubin. Samples from patients who have taken Naproxen have shown spurious elevation in total bilirubin levels. 39 Because ethnic data is not always readily available, this report includes an eGFR for both -Americans and non- Americans. The National Kidney Disease Education Program (NKDEP) does not endorse the use of the MDRD equation for patients that are not between the ages of 18 and 70, are , have extremes of body size, muscle mass, or nutritional status, or are non- or non-. According to the National Kidney Foundation, irrespective of diagnosis, the stage of the disease is based on the level of kidney function: Stage Description GFR(mL/min/1.73 m(2)) 1 Kidney damage with normal or decreased GFR 90 2 Kidney damage with mild decrease in GFR 60-89 3 Moderate decrease in GFR 30-59 4 Severe decrease in GFR 15-29 5 Kidney failure <15 (or dialysis) 40 * SERUM LEVELS OF PSA MEASURED USING THE NABOR No [employer] Vapor ACCESS HYBRITECH IMMUNOASSAY SHOULD NOT BE INTERPRETED ABSOLUTE EVIDENCE OF THE PRESENCE OR ABSENCE OF DISEASE. THE PSA VALUE SHOULD BE USED IN CONJUNCTION WITH OTHER PERTINENT CLINICAL DIAGNOSTIC PROCEDURES. A PSA value in the range of 0.1 to 0.6 ng/ml is indeterminate if being used as an indicator of recurrent or residual disease. . 41 Anion gap measurement may be of limited value in the presence of any alkalosis, especially in a combined acid base disorder. . 42 Note change in reference range as of 01/14/08. The change was based on recommendations from the [place] [employer]. 43 A metabolite of Naproxen, O-desmethylnaproxen, has been shown to interfere with the Jendrassik-[place] method for measuring total bilirubin. Samples from patients who have taken Naproxen have shown spurious elevation in total bilirubin levels. 44 Because ethnic data is not always readily available, this report includes an eGFR for both -Americans and non- Americans. The National Kidney Disease Education Program (NKDEP) does not endorse the use of the MDRD equation for patients that are not between the ages of 18 and 70, are , have extremes of body size, muscle mass, or nutritional status, or are non- or non-. According to the National Kidney Foundation, irrespective of diagnosis, the stage of the disease is based on the level of kidney function: Stage Description GFR(mL/min/1.73 m(2)) 1 Kidney damage with normal or decreased GFR 90 2 Kidney damage with mild decrease in GFR 60-89 3 Moderate decrease in GFR 30-59 4 Severe decrease in GFR 15-29 5 Kidney failure <15 (or dialysis) 45 CHOLESTEROL INTERPRETATION: Desirable: Less than 200 MG/DL Borderline-High Risk: 200-239 MG/DL High-Risk: 240 MG/DL and over 46 HDL INTERPRETATION: Undesirable: High Risk: Less than 40 MG/DL Desirable: Low Risk: Greater than 60 MG/DL 47 LDL INTERPRETATION: Low Risk Optimal Level: LDL Less than 100 MG/DL Near or Above Optimal: LDL 100-129 MG/DL Borderline High Risk: LDL 130-159 MG/DL High Risk: LDL 160-189 MG/DL Very High Risk: LDL Greater than 189 MG/DL 48 CHOLESTEROL INTERPRETATION: Desirable: Less than 200 MG/DL Borderline-High Risk: 200-239 MG/DL High-Risk: 240 MG/DL and over 49 HDL INTERPRETATION: Undesirable: High Risk: Less than 40 MG/DL Desirable: Low Risk: Greater than 60 MG/DL 50 LDL INTERPRETATION: Low Risk Optimal Level: LDL Less than 100 MG/DL Near or Above Optimal: LDL 100-129 MG/DL Borderline High Risk: LDL 130-159 MG/DL High Risk: LDL 160-189 MG/DL Very High Risk: LDL Greater than 189 MG/DL 51 Anion gap measurement may be of limited value in the presence of any alkalosis, especially in a combined acid base disorder. . 52 Note change in reference range as of 01/14/08. The change was based on recommendations from the [place] [employer]. 53 Please note change in reference range effective 07 . 54 A metabolite of Naproxen, O-desmethylnaproxen, has been shown to interfere with the [place] method for measuring total bilirubin. Samples from patients who have taken Naproxen have shown spurious elevation in total bilirubin levels. 55 CONSISTENT WITH PREVIOUS RESULTS * SERUM LEVELS OF PSA MEASURED USING THE [employer] Systems ACCESS HYBRITECH IMMUNOASSAY SHOULD NOT BE INTERPRETED ABSOLUTE EVIDENCE OF THE PRESENCE OR ABSENCE OF DISEASE. THE PSA VALUE SHOULD BE USED IN CONJUNCTION WITH OTHER PERTINENT CLINICAL DIAGNOSTIC PROCEDURES. A PSA value in the range of 0.1 to 0.6 ng/ml is indeterminate if being used as an indicator of recurrent or residual disease. . 56 * SERUM LEVELS OF PSA MEASURED USING THE NABOR No Paper Just Vapor ACCESS HYBRITECH IMMUNOASSAY SHOULD NOT BE INTERPRETED ABSOLUTE EVIDENCE OF THE PRESENCE OR ABSENCE OF DISEASE. THE PSA VALUE SHOULD BE USED IN CONJUNCTION WITH OTHER PERTINENT CLINICAL DIAGNOSTIC PROCEDURES. A PSA value in the range of 0.1 to 0.6 ng/ml is indeterminate if being used as an indicator of recurrent or residual disease. . 57 PREADMISSION TESTING SAMPLES FOR BLOOD BANK WILL BE HELD FOR 14 DAYS FROM THE DATE OF COLLECTION *IF* THE FOLLOWING CRITERIA ARE MET: 1) THE PATIENT HAS *NOT* BEEN IN THE LAST 3 MONTHS. 2) THE PATIENT HAS *NOT* BEEN TRANSFUSED IN THE LAST 3 MONTHS. PREADMISSION TESTING SAMPLES WILL *NOT* BE HELD FOR 14 DAYS FROM PATIENTS WHO IN THE LAST 3 MONTHS: 1) HAVE BEEN 2) HAVE BEEN TRANSFUSED THESE PATIENTS *MUST* BE COLLECTED WITHIN 3 DAYS OF THE SURGERY DATE. 58 Anion gap measurement may be of limited value in the presence of any alkalosis, especially in a combined acid base disorder. . 59 Please note change in reference range effective 07 . 60 ---- RUN DATE: 11/30/07 [facility] NMI LIVE PAGE 1 RUN TIME: 1459 Specimen Inquiry RUN USER: INTERFACE -- Name: AZUCEAN CHAVEZ Accmelisa#: [id number] Status: REG REF Re11/26/07 Age/Sex: 72/M Unit#: [id number] Location: [facility] : 34 -- Specimen: [id number] SOUT Spec Date: 11/26/[address]: Seferino marcelino MD Spec Type: SURGICAL P Received: 11/26/07-8362 Copies to: Grzegorz cornejo MD SPECIMEN 1) LEFT LOBE PROSTATE BIOPSY APEX (APEX 3) 2) LEFT LOBE PROSTATE BIOPSY BASE (BASE 3) 3) RIGHT LOBE PROSTATE BIOPSY APEX (APEX 4) 4) RIGHT LOBE PROSTATE BIOPSY BASE (BASE 3) HISTORY PRE-OP DIAGNOSIS: Moderate enlarged prostate right lobe hard nodular. POST-OP DIAGNOSIS: PSA 4.09 GROSS DESCRIPTION 1) The specimen is received in formalin labelled Azucena Chavez, Left Prostate Lobe [place], and consists of three, gu, soft tissue cores measuring 1.6 cm., 1.7 cm., and 1.3 x 0.1 cm. Submitted entirely, one cassette. 2) The specimen is received in formalin labelled Azucena Preciadoper, Left Prostate Lobe Base, and consists of three, gu, soft tissue cores measuring 1.6 cm., 1.8 cm., and 1.5 x 0.1 cm. Submitted entirely, one cassette. 3) The specimen is received in formalin labelled Azucena Preciadoper, Right Prostate Lobe [place], and consists of three, gu, soft tissue cores measuring 1.6 cm., 1.8 cm., and 1.5 x 0.1 cm. Submitted entirely, one cassette. 4) The specimen is received in formalin labelled Azucena Hopper, Right Prostate Lobe Base, and consists of three, gu, soft tissue cores measuring 1.8 cm., 1.0 cm., and 1.7 x 0.1 cm. Submitted entirely, one cassette. DIAGNOSIS 1) Prostate, left apex, core biopsies - A) Benign prostate tissue with partial atrophy and chronic inflammation. B) No evidence of malignancy identified. -- DEPARTMENT OF PATHOLOGY, [address] [place] [address] [facility] Permit #[id number] John Dexter M.D. Director of [facility] -- -- RUN DATE: 11/30/07 [facility] NMI LIVE PAGE 2 RUN TIME: 1459 Specimen Inquiry RUN USER: INTERFACE -- Name: AZUCENA CHAVEZ Accmelisa#: [id number] Status: REG REF Re11/26/07 Age/Sex: 72/M Unit#: [id number] Location: [facility] : 34 -- -- CONTINUED -- DIAGNOSIS (Continued) 2) Prostate, left base, core biopsies - A) Benign prostate tissue with partial atrophy and chronic inflammation. B) No evidence of malignancy identified. 3) Prostate, right apex, core biopsies - A. Prostatic adenocarcinoma, small acinar type: 1. Deepali score: 3 + 4=7. 2. Extent of Local Invasion: Tumor involves two of three cores, measures 0.8 cm. in maximal single span, and occupies 30% of total core volume. 3. Perineural Invasion: Not seen. 4. Angiolymphatic Invasion: Not seen. B. Other findings: None. 4) Prostate, right base, core biopsies - A. Prostatic adenocarcinoma, small acinar type: 1. Pound score: 3 + 4=7. 2. Extent of Local Invasion: Tumor involves two foci on two of three cores, measures 0.1 cm. in maximal aggregate dimension, and occupies less than 5% of total core length. 3. Perineural Invasion: Not seen. 4. Angiolymphatic Invasion: Not seen. B. Other findings: None. Signed Electronically by: JOHN DEXTER MD 11/30/07 1458 -- -- DEPARTMENT OF PATHOLOGY, [address] [place] [address] [facility] Permit #[id number] John Dexter M.D. Director of Laboratories -- 61 FASTING 62 CHOLESTEROL INTERPRETATION: Desirable: Less than 200 MG/DL Borderline-High Risk: 200-239 MG/DL High-Risk: 240 MG/DL and over 63 HDL INTERPRETATION: Undesirable: High Risk: Less than 40 MG/DL Desirable: Low Risk: Greater than 60 MG/DL 64 LDL INTERPRETATION: Low Risk Optimal Level: LDL Less than 100 MG/DL Near or Above Optimal: LDL 100-129 MG/DL Borderline High Risk: LDL 130-159 MG/DL High Risk: LDL 160-189 MG/DL Very High Risk: LDL Greater than 189 MG/DL 65 Anion gap measurement may be of limited value in the presence of any alkalosis, especially in a combined acid base disorder. . 66 Please note change in reference range effective 07 . 67 ---- RUN DATE: 11/02/07 [facility] NMI LIVE PAGE 1 RUN TIME: 1558 Specimen Inquiry RUN USER: INTERFACE -- Name: AZUCENA CHAVEZ Wayne#: [id number] Status: REG REF Re10/30/07 Age/Sex: 72/M Unit#: [id number] Location: [facility] : 34 -- Specimen: [id number] SOUT Spec Date: 10/30/[address]: Wilian king MD Spec Type: SURGICAL P Received: 10/30/07-0363 Copies to: Grzegorz cornejo MD SPECIMEN 1) BIOPSY CECAL POLYP 2) POLYP COLON AT 30 CM. HISTORY CLINICAL INFORMATION: Patient for follow-up for colon polyps GROSS DESCRIPTION 1) The specimen is received in formalin labelled Azucena Chavez, Biopsy Cecal Polyp, and consists of a polypoid, gu, soft tissue fragment measuring 0.4 x 0.3 x 0.2 cm. Submitted entirely, one cassette. 2) The specimen is received in formalin labelled Azucena Preciadoper, Colon Polyp at 30 cm., and consists of a polypoid, gu, soft tissue fragment measuring 0.6 x 0.3 x 0.2 cm. Submitted entirely, one cassette. DIAGNOSIS 1) Colon, cecum, biopsy - A) Tubular adenoma. B) No high grade dysplasia or malignancy. 2) Colon, 30 cm., biopsy - A) Tubular adenoma. B) No high grade dysplasia or malignancy. Signed Electronically by: JOHN DEXTER MD 11/02/07 1557 -- -- DEPARTMENT OF PATHOLOGY, [address] [place] [address] [facility] Permit #[id number] John Dexter M.D. Director of Laboratories -- Procedures Date CPT Code Description Status 09/02/2016 55091 EKG Tracing & Interpretation Completed 11/20/2015 88499 ECHO Stress Test Incl Perf Contiuous ekg Monitoring Completed W/Phys Superv 11/15/2015 12349 ECHO Transthoracic, Real-Time 2D With Doppler And Color Completed Flow 10/02/2015 34518 EKG Tracing & Interpretation Completed 09/11/2015 49008 Holter Monitor Review (24 hr)dr mccollum & casie Completed only 09/06/2015 59444 ECG Monitor/Recording W/Visual Superimposition Scanning Completed 09/01/2015 36856 EKG Tracing & Interpretation Completed 03/16/2010 62236 ECHO Transthoracic, Real-Time 2D With Doppler And Color Completed Flow 12/29/2007 04364 EKG, Interpretation Only Completed 12/29/2007 80095 EKG, Interpretation Only Completed 10/30/2007 Colonoscopy Completed Encounters Type Date Location Provider CPT E/M Dx Office Visit 09/02/2016 2:40p [facility] Faytaybalayna Harris, 28846 R00.1 Juliette I34.0 I36.1 E78.4 Office Visit 06/17/2016 2:20p [facility] Grzegorz Washburn, 13552 J12.9 - Jean-Pierre Mclain M.D.,FACP Office Visit 03/05/2016 4:00p [facility] Grzegorz Washburn, 51433 J20.9 - Gold Segovia,FACP Office Visit 01/10/2016 2:20p [facility] Faytaybalayna Degroot 06788 R00.1 Juliette Harris I34.0 I36.1 Office Visit 12/04/2015 10:30a [facility] Grzegorz Washburn, 45225 R00.2 - Jean-Pierre Mclain M.D.,FACP T74.11xD Office Visit 10/02/2015 2:00p [facility] Faytaybalayna SEtienne Harris, 15670 R00.2 Juliette R94.31 R00.1 Office Visit 09/01/2015 10:00a [facility] Internal Grzegorz Washburn, 57139 Z00.01 Medicine - Jean-Pierre Mclain M.D.,FACP R41.89 R00.2 T74.11xA Z23 Office Visit 06/23/2014 10:00a [facility] Internal Medicine - Taz Powell, BEHAVIORAL HEALTH CARE MANAGER 60760 465.8 [place] 465.9 Office Visit 05/06/2014 2:00p [facility] Keyla Jane, N.P. 43862 465.9 - [place] Office Visit 02/21/2014 1:30p [facility] Taz Powell, BEHAVIORAL HEALTH CARE MANAGER 54909 680.2 - [place] V04.81 Office Visit 01/08/2013 11:00a [facility] Grzegorz Washburn, 76788 473.8 - Gold Segovia,FACP Office Visit 10/30/2012 2:00p [facility] Cris Reyez M.D. 45450 461.8 - [place] Office Visit 08/27/2012 11:30a [facility] Keyla Jane, N.P. 59261 466.0 - [place] Office Visit 08/07/2012 11:00a [facility] Grzegorz Washburn, 26917 784.0 - Gold Segovia,FACP Office Visit 05/07/2012 11:00a [facility] Keyla Jane, N.P. 42016 V76.51 - [place] V70.0 401.1 272.2 389.9 369.9 Office Visit 12/31/2011 2:15p [facility] Keyla Jane, N.P. 87910 724.2 - [place] Office Visit 10/03/2011 3:00p [facility] Grzegorz Washburn, 09178 593.2 - Gold Segovia,[facility] 724.2 Office Visit 08/23/2011 11:00a [facility] Internal Medicine Keyla Jane, N.P. [address] 753.15 - [place] V04.89 Office Visit 07/31/2011 2:45p Orthopedic Services Feng Goff 19153 719.46 Of Linda DiggsPEtienneAEtienne-C 727.09 Office Visit 07/18/2011 11:00a Director Of Broadcast Internal Medicine [facility], [facility] 12[address] 719.46 [facility] 724.5 401.1 Office Visit 04/24/2011 1:00p DO Not Use Director Of Broadcast At Grzegorz Washburn, 07326 V70.0 Aftonkalyan Segovia,FACP 272.2 287.5 V10.46 401.1 Office Visit 02/18/2011 10:00a DO Not Use Director Of Broadcast At [facility] 75[address] 272.2 [place] 919.4 Office Visit 02/08/2011 4:15p DO Not Use Director Of Broadcast At [facility] [address]97 780.79 [facility] 272.2 236.5 919.4 Office Visit 02/20/2010 2:00p DO Not Use Director Of Broadcast At Grzegorz Washburn, 388[address] 185 Aftonklayan Segovia,FACP 272.2 785.2 441.4 Office Visit 12/18/2009 11:20a DO Not Use Director Of Broadcast At Reggie Mesa M.D. 87911 272.2 [facility] 708.0 719.41 Office Visit 03/29/2009 10:20a DO Not Use Director Of Broadcast At Grzegorz Washburn, 34228 719.46 Aftonkalyan Segovia,FACP Office Visit 10/26/2008 1:20p DO Not Use Director Of Broadcast At Grzegorz Washburn, 770[address] 185 Aftonkalyan Segovia,FACP 272.2 785.2 Office Visit 09/30/2007 2:00p DO Not Use Director Of Broadcast At Grzegorz Washburn, 76709 211.3 Luis Segovia,FACP 272.2 236.5 Plan of Care Future Appointment(s):07/11/2017 11:40 am - Bimal Harris M.D. at [facility]05/21/2017 - Grzegorz Washburn M.D.,FACPZ00.01 Encounter for general adult medical exam w abnormal findingsComments:Received flu shot this fall. Routine Health Maintenance up to date. Depression screen: on fileADL screen: negativeAdvance directives: HCP discussed, form to be obtained. Requests MOLST form. Cognitive impairment screen: negative Reviewed [facility] DM/HM form.E78.4 Other hyperlipidemiaComments:LDL at goal <130, for primary prevention of heart disease. Continue Statin medication.I34.9 Nonrheumatic mitral valve disorder, unspecifiedComments:Follow up with cardiology.R00.1 Bradycardia, unspecifiedComments:Follow up with cardiology.R97.21 Rising PSA fol treatment for malignant neoplasm of prostateNew Labs:PSA DiagnosticComments: Discussed PSA results and possibility of prostate cancer recurrence. Perform PSA to monitor prostate. Follow up with Dr. Solorio.R06.00 Dyspnea, unspecifiedNew Xrays:Chest PA & Lat 2 VWSComments:Discussed possible causes of shortness of breath
--- NOTE | 2017-06-20 13:34 | UC ---
Upper Extremity HPI - HPI Summary HPI Summary: 82 y/o male presents to the urgent care c/o Left wrist and elbow pain s/p falling down the 5 stairs last Friday06/16/2017. Pt reports elbow was swollen and the next day he woke up with a lot of bruising and the wrist too. Pain is mild 6/10 at touch. FROM of both joints. He applied ice, but he has not taking anything to alleviate symptoms. He wants to make sure he doesn't have a fracture. Pt denies numbness or tingling sensation over fingers or hand, fever, SOB, chest pain, abdominal pain, N/V/D. - History of Current Complaint Chief Complaint: UCUpperExtremity Stated Complaint: ARM INJURY Time Seen by Provider: 06/20/17 13:18 Hx Obtained From: Patient Onset/Duration: Sudden Onset, Lasting Days - 5 days, Still Present Severity Initially: Moderate Severity Currently: Moderate Pain Intensity: 6 Pain Scale Used: 0-10 Numeric Location Of Pain: Is Discrete @ - Left elbow and left wrist Character: Aching - at touch Aggravating Factor(s): Other - touch Alleviating Factor(s): Ice Associated Signs And Symptoms: Positive: Swelling, Bruising. Negative: Fever, Weakness, Numbness/Tingling - Risk Factors Non-Orthopedic Risk Factor: Negative DVT Risk Factors: Negative Septic Arthritis Risk Factor: Negative - Allergies/Home Medications Allergies/Adverse Reactions: Allergies Allergy/AdvReac Type Severity Reaction Status Date / Time CRAB Allergy Swelling Uncoded 06/20/17 11:28 Of Face,Lips,& Throat Home Medications: Home Medications Ascorbic Acid TAB* [Vitamin C TAB*] 500 mg PO DAILY 06/20/17 [History Confirmed 06/20/17] Aspirin [Aspirin 81 MG TAB] 81 mg PO DAILY 06/20/17 [History Confirmed 06/20/17] B-Complex Vitamins [Vitamin B Complex] 1 tab PO DAILY 06/20/17 [History Confirmed 06/20/17] Calcium Carbonate-Cholecalcife [Calcium 500 +D 500-400 mg-Unit] 1 tab PO DAILY 06/20/17 [History Confirmed 06/20/17] Cyanocobalamin TAB* [Vitamin B12 TAB*] 2,500 mcg PO DAILY 06/20/17 [History Confirmed 06/20/17] Fluticasone Propionate (Nasal) [Allergy Nasal [place] 24 Ho] 50 mcg NA DAILY 06/20 [History Confirmed 06/20/17] Natural Opthalmic 1 drop .SEE ORDER DAILY 06/20/17 [History] [place]-3 Fatty Acids [Fish Oil] 1,000 mg PO DAILY 06/20/17 [History Confirmed ] Potassium Gluconate [Potassium Gluconate ER] 595 mg PO DAILY 06/20/17 [History Confirmed 06/20/17] Propranolol TAB* [Inderal TAB*] 10 mg PO DAILY PRN 06/20/17 [History Confirmed 06/20/17] Simvastatin TAB(NF) [Zocor 10 MG (NF)] 10 mg PO DAILY 06/20/17 [History Confirmed 06/20/17] PMH/Surg Hx/FS Hx/Imm Hx Previously Healthy: Yes Endocrine History: Dyslipidemia Cardiovascular History: Hypertension Other Cardiovascular History: Aortic Stenosis, bradycardia Cancer History: Prostate Cancer Other History Of: Negative For: Anticoagulant Therapy - Surgical History Surgical History: Yes Surgery Procedure, Year, and Place: Prostate removed 2007 - Family History Known Family History: Positive: Cardiac Disease - Social History Occupation: Retired Lives: With Family Alcohol Use: Daily Alcohol Amount: wine daily with dinner Substance Use Type: None Smoking Status (MU): Former Smoker Review of Systems Constitutional: Negative Skin: Bruising - LF wrist bruising s/p fall Eyes: Negative ENT: Negative Respiratory: Negative Cardiovascular: Negative Gastrointestinal: Negative Genitourinary: Negative Motor: Negative Neurovascular: Negative Musculoskeletal: Other: - Left elbow pain s/p fall, LF wrist pain s/p fall Neurological: Negative Psychological: Negative Is Patient Immunocompromised?: No All Other Systems Reviewed And Are Negative: Yes Physical Exam Triage Information Reviewed: Yes Vital Signs: Initial Vital Signs Temp 98.4 F 06/20/17 11:25 Pulse 59 06/20/17 11:25 Resp 18 06/20/17 11:25 BP 163/79 06/20/17 11:25 Pulse Ox 98 06/20/17 11:25 - Additional Comments Vital Signs Reviewed: Yes Appearance: Well-Appearing, No Pain Distress, Well-Nourished old male sitting in the examining table w/o any apparent distress. General: well developed, well nourished female sitting in the examining table w/ o any apparent distress. Eyes: Positive: Conjunctiva Clear - PERRLA, EOMI, ENT: Positive: Normal ENT inspection, Hearing grossly normal, Pharynx normal, TMs normal - B/L, Uvula midline Neck: Positive: Supple, Nontender, No Lymphadenopathy Respiratory: Positive: Chest non-tender, Lungs clear, Normal breath sounds, No respiratory distress, No accessory muscle use Cardiovascular: Positive: RRR, No Murmur, Pulses Normal, Brisk Capillary Refill Abdomen Description: Positive: Nontender, No Organomegaly, Soft. Negative: CVA Tenderness (R), CVA Tenderness (L) Bowel Sounds: Positive: Present Musculoskeletal: Positive: Strength Intact, LF Elbow: The L elbow is with no deformity on the lateral side when compared to the R elbow. MIld ecchymosis, mild soft tissue swelling around the LF elbow.. Point tenderness to palpation of the lateral epicondyle, and olecranon, No epicondylar or axillary lymphadenopathy. FROM dof elbow. LF wrist with mild bruising on palmar side with point tenderness, mild swellin. FROM of wrist. No snuff box tenderness. . Muscle strength. Intact motor and sensation of ulnar, median, and radial nerves. Neurological: Positive: Alert, Muscle Tone Normal Psychological Exam: Normal Skin Exam: Normal Upper Extremity Course/Dx - Course Course Of Treatment: 82 y/o male presents to the urgent care c/o Left wrist and elbow pain s/p falling down the 5 stairs last Friday06/16/2017. Pt reports elbow was swollen and the next day he woke up with a lot of bruising and the wrist too. Pain is mild 6/10 at touch. FROM of both joints. He applied ice, but he has not taking anything to alleviate symptoms. He wants to make sure he doesn 't have a fracture. Pt denies numbness or tingling sensation over fingers or hand, fever, SOB, chest pain, abdominal pain, N/V/D. Hx obtained. PE performed. LF elbow and LF wrist X-ray ordered, Impression:Osteoarthritis observed at the first MCCJ and radial capitaller and ulnar trochlear observed. NO acute osseous injury. Pt educated on X-ray findings. Pt's arm immobilized w/ a shoulder sling to alleviates symptoms. RX Tylenol for pain, advised RICE. Advised if not improvement of symptoms to f/u with Orthopedic Dr Askew in 1 week for further evaluation and treatment.Pt's BP is elevated today advised to decrease salt in diet, monitor BP and f/u with PCP for further management. Pt left the clinic ambulating and hemodynamycally stable. - Differential Dx/Diagnosis Differential Diagnosis/HQI/PQRI: Arthritis, Contusion, Fracture (Closed), Strain , Sprain Provider Diagnoses: 1- Left elbow pain and swelling s/p fall. 2- Left wrist pain and hematoma s/p fall. 3- Uncontrolled HTN Discharge - Discharge Plan Condition: Stable Disposition: HOME Prescriptions: Acetaminophen TAB* [Tylenol TAB*] 650 mg PO Q6H PRN #30 tab PRN Reason: Pain Patient Education Materials: Elbow Sprain (ED), Low-Sodium Diet (ED), Wrist Sprain (ED) Referrals: Jimmie Askew MD [Medical Doctor] - 1 Week Grzegorz Washburn MD [Primary Care Provider] - 1 Week Additional Instructions: 1-Please take tylenol PO as directed to alleviate pain and swelling. 2-Please apply ice, keep your shoulder immobilized with the shoulder sling for 3 -4 days and then resume movement slowly. also keep the wrist immobilized with deepa-bandage to avoid flexion. 3- Please f/u with Orthopedic or your PCP in 1 week is not improvement of symptoms for further evaluation and treatment. 4-Your BP is elevated today. please decrease salt in your diet, monitor BP and if it continues to be elevated please f/u with your PCP for further management
[2017-06-20 14:34] VITALS: BP 153/78
--- NOTE | 2017-06-20 14:38 | RAD ---
HISTORY: Left elbow pain and swelling status post fall COMPARISONS: None VIEWS: 4, Frontal, lateral, and oblique views of the left elbow FINDINGS: BONE DENSITY: Normal. BONES: There is no displaced fracture. JOINTS: There is osteoarthritis of the radial-capitellar and ulnar trochlear articulations. ALIGNMENT: There is no dislocation. SOFT TISSUES: Unremarkable. OTHER FINDINGS: None. IMPRESSION: OSTEOARTHRITIS. NO ACUTE OSSEOUS INJURY. IF SYMPTOMS PERSIST, RECOMMEND REPEAT IMAGING.
--- NOTE | 2017-06-20 14:39 | RAD ---
HISTORY: Left wrist pain status post fall COMPARISONS: None VIEWS: 3, Frontal, lateral, and oblique views of the left wrist FINDINGS: BONE DENSITY: Normal. BONES: There is no displaced fracture. JOINTS: There is mild osteoarthritis of the first CMC joint. ALIGNMENT: There is no dislocation. SOFT TISSUES: Unremarkable. OTHER FINDINGS: None. IMPRESSION: NO ACUTE OSSEOUS INJURY. IF SYMPTOMS PERSIST, RECOMMEND REPEAT IMAGING.
== END 2017-06-20 15:20 | disposition home or self-care (01) ==
LOC: UCEAST 10:57
DX: M25.522 Pain in left elbow (principal); M25.422 Effusion, left elbow; M25.532 Pain in left wrist; E78.5 Hyperlipidemia, unspecified; I35.0 Nonrheumatic aortic (valve) stenosis; R00.1 Bradycardia, unspecified; Z85.46 Personal history of malignant neoplasm of prostate; Z90.79 Acquired absence of other genital organ(s); Z87.891 Personal history of nicotine dependence; Z91.013 Allergy to seafood
CPT/HCPCS: 99213; G0463

== ENCOUNTER 2017-10-10 15:22 | Emergency (ER) | payer MEDICARE ==
--- NOTE | 2017-10-10 15:31 | UC ---
Hand/Wrist HPI - HPI Summary HPI Summary: 82 yo male presents with RIGHT wrist pain s/p fall about 1 hour ago. Says he tripped and fell forward with his hand outstretched. Had immediate pain. Applied ice and came to urgent care. Denies numbness or tingling. - History Of Current Complaint Stated Complaint: RIGHT HAND INJURY Time Seen by Provider: 10/10/17 15:31 Hx Obtained From: Patient Onset/Duration: Sudden Onset Severity Initially: Moderate Severity Currently: Moderate Pain Intensity: 5 Pain Scale Used: 0-10 Numeric - Allergies/Home Medications Allergies/Adverse Reactions: Allergies Allergy/AdvReac Type Severity Reaction Status Date / Time CRAB Allergy Swelling Uncoded 10/10/17 15:55 Of Face,Lips,& Throat PMH/Surg Hx/FS Hx/Imm Hx Endocrine History: Dyslipidemia Cardiovascular History: Hypertension Other History Of: Negative For: Anticoagulant Therapy - Surgical History Surgical History: Yes Surgery Procedure, Year, and Place: Prostate removed 2007 - Family History Known Family History: Positive: Cardiac Disease - Social History Occupation: Retired Lives: With Family Alcohol Use: Daily Alcohol Amount: wine daily with dinner Substance Use Type: None Smoking Status (MU): Former Smoker Review of Systems Constitutional: Negative Skin: Negative Respiratory: Negative Cardiovascular: Negative Neurovascular: Negative Musculoskeletal: Other: - Right wrist pain Neurological: Negative Psychological: Negative All Other Systems Reviewed And Are Negative: Yes Physical Exam - Summary Physical Exam Summary: GENERAL: NAD. WDWN. No pain distress. SKIN: No rashes, sores, lesions, or open wounds. NECK: Supple. Nontender. No lymphadenopathy. CHEST: No accessory muscle use. Breathing comfortably and in no distress. CV: RRR. Without m/r/g. Pulses intact radial and ulnar. MSK: Right wrist: FROM, but mild pain with flexion and extension at radial head. Mild edema and loss of bony protrusion at radial styloid. Strength 5/5 including shift boss strength. No snuffbox tenderness. NEURO: Alert. Sensations intact hand and all fingers. PSYCH: Age appropriate behavior. Triage Information Reviewed: Yes Vital Signs: Vital Signs: Temp Pulse Resp BP Pulse Ox 98.0 F 67 18 138/78 99 10/10/17 15:40 10/10/17 15:40 10/10/17 15:40 10/10/17 15:40 10/10/17 15:40 Procedures - Splinting Location: Right wrist Hand-Made Type: orthoglass Splint: wrist Pre-Proc Neuro Vasc Exam: normal Post-Proc Neuro Vasc Exam: normal Hand/Wrist Course/Dx - Course Course Of Treatment: XR: 1. NONDISPLACED FRACTURE OF THE DISTAL RADIUS WITH ARTICULAR EXTENSION. IMPRESSION: Likely fracture radial styloid process and ulnar styloid process. Pt placed in volar/dorsal orthoglass splint. F/u with Ortho on friday. - Differential Dx/Diagnosis Provider Diagnoses: NONDISPLACED FRACTURE OF THE DISTAL RIGHT RADIUS WITH ARTICULAR EXTENSION Discharge - Sign-Out/Discharge Documenting (check all that apply): Discharge/Admit/Transfer - Discharge Plan Condition: Stable Disposition: HOME Patient Education Materials: Wrist Fracture in Adults (ED), Splint Care (ED) Referrals: Grzegorz Washburn MD [Primary Care Provider] - Jeromy Rodríguez MD [Medical Doctor] - As Soon As Possible Additional Instructions: If you develop a fever, shortness of breath, chest pain, new or worsening symptoms - please call your PCP or go to the ED. Your blood pressure was high at todays visit. Please see your primary provider within 4 weeks for recheck and re-evaluation. 1) Rest, Ice, and elevate your wrist as much as possible over the next 24- 48hours 2) Keep your splint clean, dry, and intact until your follow up with Orthopedics on friday 3) Please call Orthopedics on Friday at the number below to schedule a follow up appointment - they will most likely see you that friday. - Billing Disposition and Condition Condition: STABLE Disposition: HOME
[2017-10-10 15:55] VITALS: BP 138/78
--- NOTE | 2017-10-10 15:56 | RAD ---
Indication: Fall, left forearm injury. 2 views of left forearm demonstrates fracture of the radial styloid process and probable ulnar fracture. The remainder of the shaft of the radius and ulna are unremarkable. IMPRESSION: Likely fracture radial styloid process and ulnar styloid process.
--- NOTE | 2017-10-10 15:56 | RAD ---
HISTORY: Right wrist pain, fall COMPARISONS: Right hand dated August 14, 2014 VIEWS: 3, Frontal, lateral, and oblique views of the right wrist FINDINGS: BONE DENSITY: Normal. BONES: There is a nondisplaced fracture through the volar aspect of the radial styloid with articular extension. JOINTS: There is mild osteoarthritis of the first CMC and MCP joints. ALIGNMENT: There is no dislocation. SOFT TISSUES: Unremarkable. OTHER FINDINGS: None. IMPRESSION: 1. NONDISPLACED FRACTURE OF THE DISTAL RADIUS WITH ARTICULAR EXTENSION
[2017-10-11] MEDS ORDERED: NS 0.9% 1000 ML* 1,000 ML IV ONE (07:31)
[2017-10-11] MEDS ORDERED: Aspirin 81 mg CHEW TAB* 81 MG TAB.CHEW PO ONE (07:31)
[2017-10-11] MEDS ORDERED: Nitroglycerin TAB 0.4 MG* 0.4 MG TAB SL ONE (07:32)
== END 2017-10-10 17:15 | disposition home or self-care (01) ==
LOC: UCEAST 15:22
DX: S52.501A Unspecified fracture of the lower end of right radius, initial encounter for closed fracture (principal); W01.0XXA Fall on same level from slipping, tripping and stumbling without subsequent striking against object, initial encounter; Y93.9 Activity, unspecified; Y92.9 Unspecified place or not applicable; I10 Essential (primary) hypertension; Z87.891 Personal history of nicotine dependence
CPT/HCPCS: 99212; G0463

== ENCOUNTER 2018-08-25 17:47 | Emergency (ER) | payer MEDICARE ==
[2018-08-25] MEDS ORDERED: Acetaminophen TAB* 325 MG PO ONE (19:51)
--- NOTE | 2018-08-25 19:53 | ED ---
Complex/Multi-Sys Presentation - HPI Summary HPI Summary: This patient is an 83 year old M presenting to ED with a chief complaint of high BP since 08/23/18. He was referred to come here from [facility]. He went in for his flu-like sx and was tested for a flu which came out negative. They refused to give him medications for his sx because he was having high BP. The patient rates the pain 0/10 in severity. Symptoms aggravated by nothing. Symptoms alleviated by nothing. Patient reports nasal congestion, B[place], fever, insomnia, productive cough with yellow sputum, and gurgling sounds in his chest. PMHx of HTN but does not take medication for it. - History Of Current Complaint Chief Complaint: EDHypertension Time Seen by Provider: 08/25/18 19:31 Hx Obtained From: Patient Onset/Duration: Sudden Onset, Lasting Days - since 08/23/18, Still Present Timing: Constant, Days Severity Currently: None Aggravating Factor(s): nothing Alleviating Factor(s): nothing Associated Signs And Symptoms: Positive: Headache, Cough, Fever, Other - "gurgling sounds in his chest, insomnia - Allergies/Home Medications Allergies/Adverse Reactions: Allergies Allergy/AdvReac Type Severity Reaction Status Date / Time CRAB Allergy Swelling Uncoded 10/10/17 15:55 Of Face,Lips,& Throat PMH/Surg Hx/FS Hx/Imm Hx Endocrine/Hematology History: Denies: Hx Anticoagulant Therapy, Hx Diabetes Cardiovascular History: Reports: Hx Hypertension - "Borderline" - Cancer History Cancer Type, Location and Year: Hx of prostate CA - Surgical History Surgery Procedure, Year, and Place: Prostate removed 2007 Infectious Disease History: No Infectious Disease History: Denies: Traveled Outside the [place] in Last 30 Days - Family History Known Family History: Positive: Cardiac Disease - Social History Alcohol Use: Daily Alcohol Amount: 2 glasses of wine with dinner Substance Use Type: Reports: None Smoking Status (MU): Former Smoker Review of Systems Positive: Fever Positive: Other - nasal congestion Positive: Other - high BP Positive: Cough - productive with yellow sputum, Other - gurgling sounds in his chest Neurological: Other - insomnia Positive: Headache All Other Systems Reviewed And Are Negative: Yes Physical Exam - Summary Physical Exam Summary: VITAL SIGNS: Reviewed. GENERAL: Patient is a well-developed and nourished MALE who is lying comfortable in the stretcher. Patient is not in any acute respiratory distress. HEAD AND FACE: No signs of trauma. No ecchymosis, hematomas or skull depressions. No sinus tenderness. Nasal congestion. EYES: PERRLA, EOMI x 2, No injected conjunctiva, no nystagmus. EARS: Hearing grossly intact. Ear canals and tympanic membranes are within normal limits. MOUTH: Oropharynx within normal limits. NECK: Supple, trachea is midline, no adenopathy, no JVD, no carotid bruit, no c- spine tenderness, neck with full ROM. CHEST: Symmetric, no tenderness at palpation LUNGS: No wheezing or crackles. Bilateral basal rhonchi. CVS: Regular rate and rhythm, S1 and S2 present, no murmurs or gallops appreciated. ABDOMEN: Soft, non-tender. No signs of distention. No rebound no guarding, and no masses palpated. Bowel sounds are normal. EXTREMITIES: FROM in all major joints, no edema, no cyanosis or clubbing. NEURO: Alert and oriented x 3. No acute neurological deficits. Speech is normal and follows commands. SKIN: Dry and warm Triage Information Reviewed: Yes Vital Signs On Initial Exam: Initial Vitals Temp Pulse Resp BP Pulse Ox 98.7 F 78 20 191/93 97 08/25/18 17:48 08/25/18 17:48 08/25/18 17:48 08/25/18 17:48 08/25/18 17:48 Vital Signs Reviewed: Yes Diagnostics - Vital Signs Vital Signs Temp Pulse Resp BP Pulse Ox 08/25/18 19:38 101.4 F 08/25/18 19:31 70 190/105 95 08/25/18 19:30 72 90 08/25/18 18:52 97.9 F 69 20 160/78 92 08/25/18 17:48 98.7 F 78 20 191/93 97 - Laboratory Result Diagrams: 08/25/18 20:48 08/25/18 20:48 Lab Statement: Any lab studies that have been ordered have been reviewed, and results considered in the medical decision making process. - Radiology CXR Radiology Interpretation Completed By: ED Physician Summary of Radiographic Findings: No acute processes. Pending official radiologist report. - EKG 2001 Cardiac Rate: NL - 67 BPM EKG Rhythm: Sinus Rhythm Summary of EKG Findings: LVH Re-Evaluation - Re-Evaluation First Eval Re-Evaluation Time: 21:55 Comment: Discussed results with the patient and plan for discharge. Patient also stated that his BP usually increases when he sees the doctor or goes to the hospital. He was instructed to monitor his BP at home and see his PCP for this. Patient understands and agrees with this plan. Complex Multi-Symp Course/Dx Assessment/Plan: This patient is an 83 year old M presenting to ED with a chief complaint of high BP since 08/23/18. Patient also presents with flu-like sx but was tested negative for the flu. In the ED course, the patient was given Tylenol. EKG reveals NSR at 67 BPM and LVH. CXR, per Dr. Sanders, reveals no acute processes. The patients BP spontaneously improved in the ER. Patient also stated that his BP usually increases when he sees the doctor or goes to the hospital. He was instructed to monitor his BP at home and see his PCP for this. The patient will be discharged with dx of sinusitis and bronchitis. Patient understands and agrees with this plan. - Diagnoses Differential Diagnoses/HQI/PQRI: Other - sinusitis and bronchitis Provider Diagnoses: Sinusitis, Bronchitis Discharge - Sign-Out/Discharge Documenting (check all that apply): Patient Departure - discharge Patient Received Moderate/Deep Sedation with Procedure: No - Discharge Plan Condition: Stable Disposition: HOME Prescriptions: Amoxicillin/Clavulanate TAB* [Augmentin TAB 875*] 875 mg PO BID #20 tab Patient Education Materials: Sinusitis (ED), Acute Bronchitis (ED) Referrals: Grzegorz Washburn MD [Primary Care Provider] - 3 Days Additional Instructions: PLEASE RETURN TO THE ED TO IMMEDIATELY FOR WORSENING OR CONCERNING SYMPTOMS. - Billing Disposition and Condition Condition: STABLE Disposition: Home - Attestation Statements Document Initiated by Scribe: Yes Documenting Scribe: Daljit Owusu Provider For Whom Any is Documenting (Include Credential): Liliane Sanders MD Scribe Attestation: Daljit Menon scrjaydened for Liliane Sanders MD on 08/26/18 at 0614. Scribe Documentation Reviewed: Yes Provider Attestation: The documentation as recorded by the Daljit hauser accurately reflects the service I personally performed and the decisions made by me, Liliane Sanders MD Status of Scribe Document: Viewed
[2018-08-25 20:31] LABS: Influenza A Molecular NEGATIVE (Negative); Influenza B Molecular NEGATIVE (Negative)
[2018-08-25 21:06] LABS: ABS Basophils 0 10^3/ul (0-0.2); ABS Eosinophils 0.1 10^3/ul (0-0.6); ABS Lymphocytes 0.7 10^3/ul (1.0-4.8); ABS Monocytes 0.4 10^3/ul (0-0.8); ABS Neutrophils 6.2 10^3/ul (1.5-7.7); ABS Nucleated RBC 0 10^3/ul; Eosinophil % 1.6 %; Hematocrit 43 % (36-46); Hemoglobin 14.7 g/dL (14.0-18.0); Lymphocyte % 9.1 %; Mean Corpuscular HGB Conc 34 g/dL (31-36); Mean Corpuscular Hemoglobin 32 pg (27-31); Mean Corpuscular Volume 93 fL (80-94); Mean Platelet Volume 8.9 fL (7.4-10.4); Nucleated Red Blood Cells % 0; Platelet Count 147 10^3/uL (150-450); Red Cell Distribution Width 14 % (10.5-15); White Blood Count 7.4 10^3/uL (3.5-10.8)
[2018-08-25 21:18] LABS: Activated Partial Thrombo Time 27.6 seconds (26.0-36.3); INR 0.97 (0.77-1.02)
[2018-08-25 21:25] LABS: ALT 15 U/L (7-52); AST 17 U/L (13-39); Albumin 4.3 g/dL (3.2-5.2); Albumin/Globulin Ratio 1.8 (1-3); Alkaline Phosphatase 54 U/L (34-104); Anion Gap 7 mmol/L (2-11); BUN/Creatinine Ratio 15.4 (8-20); Blood Urea Nitrogen 12 mg/dL (6-24); C Reactive Protein 44.68 mg/L (<8.01); CO2 Carbon Dioxide 25 mmol/L (22-32); Chloride 103 mmol/L (101-111); EGFR African American 114.7 (>60); EGFR Non-African American 94.8 (>60); Globulin 2.4 g/dL (2-4); Glucose 126 mg/dL (70-100); Potassium 3.8 mmol/L (3.5-5.0); Sodium 135 mmol/L (135-145); Total Protein 6.7 g/dL (6.4-8.9)
[2018-08-25 21:33] LABS: Troponin I 0.04 ng/mL (<0.04)
[2018-08-25] MEDS ORDERED: Amoxicillin/Clavulanate TAB* 875 MG PO ONE (21:54)
[2018-08-25 22:20] VITALS: BP 153/86
== END 2018-08-25 22:23 | disposition home or self-care (01) ==
LOC: ED 17:47
DX: J01.90 Acute sinusitis, unspecified (principal); J40 Bronchitis, not specified as acute or chronic; I51.7 Cardiomegaly; R94.31 Abnormal electrocardiogram [ECG] [EKG]; Z85.46 Personal history of malignant neoplasm of prostate; Z87.891 Personal history of nicotine dependence
CPT/HCPCS: 36415; 71045; 80053; 83605; 84484; 85025; 85610; 85730; 86140; 87040; 93005; 99284; A9270-GY

== ENCOUNTER 2018-12-03 15:23 | Emergency (ER) | payer MEDICARE ==
[2018-12-03 17:33] VITALS: BP 134/85
[2018-12-03 17:57] LABS: Hematocrit 37 % (42-52); Hemoglobin 12.4 g/dL (14.0-18.0); Mean Corpuscular HGB Conc 34 g/dL (31-36); Mean Corpuscular Hemoglobin 31 pg (27-31); Mean Corpuscular Volume 91 fL (80-94); Mean Platelet Volume 8.8 fL (7.4-10.4); Platelet Count 67 10^3/uL (150-450); Red Blood Count 4.06 10^6 /uL (4.18-5.48); Red Cell Distribution Width 14 % (10-15); White Blood Count 3.1 10^3/uL (3.5-10.8)
[2018-12-03 18:06] LABS: Albumin 3.8 g/dL (3.2-5.2); Albumin/Globulin Ratio 1.2 (1-3); BUN/Creatinine Ratio 19.8 (8-20); Calcium 8.8 mg/dL (8.6-10.3); EGFR African American 72.6 (>60); Globulin 3.3 g/dL (2-4); Potassium 4.4 mmol/L (3.5-5.0); Total Bilirubin 1.3 mg/dL (0.2-1.0); Total Protein 7.1 g/dL (6.4-8.9)
[2018-12-03 18:07] LABS: Troponin I 0.01 ng/mL (<0.04)
[2018-12-03 18:21] LABS: ABS Lymphocytes 0.9 10^3/ul (1.0-4.8); ABS Monocytes 0.7 10^3/ul (0-0.8); ABS Neutrophils 1.5 10^3/ul (1.5-7.7); Nucleated Red Blood Cells % 0.1
[2018-12-03 18:24] LABS: Microcytosis 1+
== END 2018-12-03 19:16 | disposition left against medical advice (07) ==
LOC: ED 15:23
DX: Z53.21 Procedure and treatment not carried out due to patient leaving prior to being seen by health care provider (principal)
CPT/HCPCS: 36415; 80053; 83605; 84484; 85025; 85060; 99281